=== PATIENT | female | born 1990 | race American Indian/Alaskan Native ===

== ENCOUNTER 2016-07-29 02:04 | Emergency (ER) | payer SELFPAY ==
[2016-07-29 02:19] VITALS: TEMP 98.2; O2SAT 97
--- NOTE | 2016-07-29 02:42 | ED PDOC ---
Arrival/HPI - General Chief Complaint: Abdominal Pain Time Seen by Provider: 07/29/16 02:30 Historian: Patient - History of Present Illness Narrative History of Present Illness (Text): 07/29/16 02:39 Navneet Richards is a 25 year old, 8 weeks female, who presents to the Emergency department for evaluation of 1 hour duration of abdominal pain associated with spotting. Denies any dysuria. Denies any fever, chills, headache , dizziness, chest pain, SOB, nausea, vomiting, diarrhea, or any other complaints at this time. Time/Duration: 1 hour Symptom Onset: Sudden Symptom Course: Unchanged Severity Level: Mild Activities at Onset: Light Past Medical History - Provider Review Nursing Documentation Reviewed: Yes - Psychiatric Hx Substance Use: No Family/Social History - Physician Review Nursing Documentation Reviewed: Yes Family/Social History: No Known Family HX Smoking Status: yes Hx Alcohol Use: No Hx Substance Use: No Allergies/Home Meds Allergies/Adverse Reactions: Allergies No Known Allergies Allergy (Verified 07/29/16 02:19) Review of Systems - Physician Review All systems were reviewed & negative as marked: Yes - Review of Systems Constitutional: Normal Respiratory: Normal. absent: SOB, Cough, Sputum Cardiovascular: Normal. absent: Chest Pain, Palpitations Gastrointestinal: Abdominal Pain. absent: Diarrhea, Nausea, Vomiting, Hematochezia, Hematemesis Genitourinary Female: Vaginal Bleeding Neurological: Normal. absent: Headache, Dizziness Psychiatric: Normal Physical Exam Vital Signs Reviewed: Yes Vital Signs Temp Pulse Resp BP Pulse Ox 07/29/16 02:14 98.2 F 87 18 108/62 97 Temperature: Afebrile Blood Pressure: Normal Pulse: Regular Respiratory Rate: Normal Appearance: Positive for: Well-Appearing, Non-Toxic, Comfortable Pain Distress: None Mental Status: Positive for: Alert and Oriented X 3 - Systems Exam Head: Present: Atraumatic, Normocephalic Pupils: Present: PERRL Extroacular Muscles: Present: EOMI Conjunctiva: Present: Normal Mouth: Present: Moist Mucous Membranes Neck: Present: Normal Range of Motion. No: MIDLINE TENDERNESS, Paraspinal Tenderness Respiratory/Chest: Present: Clear to Auscultation, Good Air Exchange. No: Respiratory Distress, Accessory Muscle Use Cardiovascular: Present: Regular Rate and Rhythm, Normal S1, S2. No: Murmurs Abdomen: Present: Normal Bowel Sounds. No: Tenderness, Distention, Peritoneal Signs Upper Extremity: Present: Normal Inspection. No: Cyanosis, Edema Lower Extremity: Present: Normal Inspection. No: Edema Neurological: Present: GCS=15, CN II-XII Intact, Speech Normal Skin: Present: Warm, Dry, Normal Color. No: Rashes Psychiatric: Present: Alert, Oriented x 3, Normal Insight, Normal Concentration Medical Decision Making ED Course and Treatment: 07/29/16 02:42 Impression: A 25 Year old female who presents to the Emergency department complaining of 1 hour duration of abdominal pain with spotting. Plan: -- Labs -- HCG -- Urinalysis -- Transvaginal US -- Reassess and disposition Progress Notes: 07/29/16 04:17 EXAM: US First Trimester results reviewed: FINDINGS: Gestation: Single intrauterine gestational sac. Yolk sac present. pole is identified with crown rump length of 1.6 cm and mean gestational sac diameter of 3.4 cm. cardiac activity identified - FHR is 160 bpm. Placenta/amniotic fluid: Cannot be adequately evaluated due to the early gestational age. Uterus/cervix: Normal size 6.7 x 8.5 x 10.3 cm. No myometrial mass. Ovaries: Right ovary 2.7 x 1.7 x 1.9 cm appears normal. Vascular flow noted to right ovary. Left ovary 3 x 2.5 x 3.2 cm appears normal. Vascular flow noted to left ovary. Free fluid: No evidence of pelvic free fluid. IMPRESSION: 1. Single viable intrauterine with estimated gestational age is 8 weeks 2 days by current ultrasound. 2. Normal appearing bilateral ovaries. 3. No evidence of pelvic free fluid. 07/29/16 04:59 On re-evaluation, patient feels better and is in no acute distress. I have discussed the results and plan with the patient, who expresses understanding. Patient in agreement with plan to be discharged home. Patient is stable for discharge. Patient was instructed to follow up with physician or return if symptoms worsen or new concerning symptoms arise. Re-evaluation Time: 04:50 Reassessment Condition: Re-examined, Improved - Lab Interpretations Lab Results: 07/29/16 02:44 07/29/16 02:44 Lab Results 07/29/16 03:05: Blood Type A POSITIVE, Antibody Screen Negative, BBK History Checked No verified bt 07/29/16 02:44: Urine Color Yellow, Urine Appearance Sl cloudy, Urine pH 6.0, Ur Specific [place] >= 1.030, Urine Protein 30 H, Urine Glucose (UA) Negative, Urine Ketones 15 H, Urine Blood Trace-lysed H, Urine Nitrate Negative, Urine Bilirubin Negative, Urine Urobilinogen 0.2, Ur Leukocyte Esterase Small H, Urine RBC 0 - 2, Urine WBC 20 - 25, Ur Epithelial Cells 1 - 3, Urine Bacteria Mod, Urine HCG, Qual Positive 07/29/16 02:44: Sodium 137, Potassium 3.6, Chloride 104, Carbon Dioxide 25, Anion Gap 12, BUN 13, Creatinine 0.7, Est GFR ( Amer) > 60, Est GFR (Non- Af Amer) > 60, Random Glucose 78, Calcium 9.6, Total Bilirubin 0.3, AST 125 H, ALT 87 H, Alkaline Phosphatase 43, Total Protein 7.8, Albumin 4.4, Globulin 3.4 , Albumin/Globulin Ratio 1.3 07/29/16 02:44: WBC 9.4, RBC 4.19, Hgb 10.7 L, Hct 32.2 L, MCV 76.8 L, MCH 25.5 , MCHC 33.2, RDW 17.0 H, Plt Count 216, MPV 10.0, Gran % 72.4 H, Lymph % (Auto) 17.7 L, [place] % (Auto) 9.2 H, Eos % (Auto) 0.5 L, Baso % (Auto) 0.2, Gran # 6.83 H, Lymph # 1.7, [place] # 0.9 H, Eos # 0.1, Baso # 0.02 - RAD Interpretation Radiology Orders: 07/29/16 02:36 OB TRANSVAGINAL [US] Stat - Medication Orders Current Medication Orders: Cephalexin Monohydrate (Keflex) 500 mg PO STAT STA PRN Reason: Protocol Stop: 07/29/16 04:59 - Scribe Statement The provider has reviewed the documentation as recorded by the Haydenibanastacio Sandoval Provider Attestation: Provider Scribe Attestation: All medical record entries made by the Scribe were at my direction and personally dictated by me. I have reviewed the chart and agree that the record accurately reflects my personal performance of the history, physical exam, medical decision making, and the department course for this patient. I have also personally directed, reviewed, and agree with the discharge instructions and disposition. Disposition/Present on Arrival - Present on Arrival Any Indicators Present on Arrival: No History of DVT/PE: No History of Uncontrolled Diabetes: No Urinary Catheter: No History of Decub. Ulcer: (nn) History Surgical Site Infection Following: None - Disposition Have Diagnosis and Disposition been Completed?: Yes Diagnosis: Urinary tract infection, Disposition: HOME/ ROUTINE Disposition Time: 04:51 Patient Problems: Current Active Problems Problem Status Onset Acute Urinary tract infection Acute Condition: GOOD Discharge Instructions (ExitCare): Urinary Tract Infection in Women (ED), First Trimester (ED) Prescriptions: Cephalexin [Keflex] 500 mg PO BID #14 capsule Referrals: Flip Trevino, [Primary Care Provider] - Follow up with primary
[2016-07-29 03:05] LABS: ADD MANUAL DIFF? NO
[2016-07-29 03:11] LABS: BASO # 0.02 K/mm3 (0.0-2.0); BASO % 0.2 % (0.0-3.0); EOS # 0.1 (0.0-0.7); EOS % 0.5 % (1.5-5.0); GRAN # 6.83 (1.4-6.5); GRAN % 72.4 % (50.0-68.0); HEMATOCRIT 32.2 % (36.0-48.0); LYMPH # 1.7 (1.2-3.4); LYMPH % 17.7 % (22.0-35.0); MEAN CELL VOLUME 76.8 fL (80.0-105.0); MEAN CORPUSCULAR HEMOGLOBIN 25.5 pg (25.0-35.0); MEAN CORPUSCULAR HGB CONC 33.2 g/dl (31.0-37.0); MONO # 0.9 (0.1-0.6); MONO % 9.2 % (1.0-6.0); PLATELET COUNT 216 10^3/uL (120.0-450.0); URINE BILIRUBIN NEGATIVE (NEGATIVE); URINE BLOOD TRACE-LYSED (NEGATIVE); URINE GLUCOSE (UA) NEGATIVE (NEGATIVE); URINE KETONE 15 mg/dL (NEGATIVE); URINE LEUKOCYTE ESTERASE SMALL Leu/uL (NEGATIVE); URINE PROTEIN 30 mg/dL (<30 mg/dL); URINE UROBILINOGEN 0.2 E.U./dL (<1 E.U./dL); WHITE BLOOD COUNT 9.4 10^3/ul (4.5-11.0)
[2016-07-29 03:25] LABS: ALB/GLOB RATIO 1.3 (1.1-1.8); ALKALINE PHOSPHATASE 43 U/L (38-133); ALT/SGPT 87 U/L (7-56); AST/SGOT 125 U/L (15-39); BILIRUBIN,TOTAL 0.3 mg/dL (0.2-1.3); BLOOD UREA NITROGEN 13 mg/dL (7-21); CALCIUM 9.6 mg/dL (8.4-10.5); CARBON DIOXIDE 25 mmol/L (21-33); CHLORIDE 104 mmol/L (95-110); GFR AFRICAN-AMERICAN > 60; GLUCOSE,RANDOM 78 mg/dL (70-110); POTASSIUM 3.6 mmol/L (3.6-5.0); SODIUM 137 mmol/L (132-148); TOTAL PROTEIN 7.8 g/dL (5.8-8.3)
[2016-07-29 03:28] LABS: URINE APPEARANCE SL CLOUDY (CLEAR); URINE COLOR YELLOW (YELLOW)
[2016-07-29 03:35] LABS: URINE BACTERIA MOD (NEG); URINE RBC 0 - 2 /hpf (0-2); URINE WBC 20 - 25 /hpf (0-6)
[2016-07-29 05:20] VITALS: BP 109/78; PULSE 89; RESP 14
--- NOTE | 2016-07-29 11:00 | US ---
PROCEDURE: OB Pelvic Ultrasound HISTORY: , abdominal pain COMPARISON: None TECHNIQUE: Transvaginal pelvic ultrasound was performed. FINDINGS: UTERUS: Single Live intrauterine gestation. CRL equivalent to 8 wks/ 0 days gestatioin Gestational sac diameter equivalent to 8 wks/ 4 days gestation age (Ultrasound estimated): 8 weeks and 2 days Date of delivery (Ultrasound estimated) : 03/08/2017 Heart rate: 160 bpm. Amanda-gestational hemorrhage: None. Measures 10.3 x 6.7 x 0.5 cm. Normal in size. No fibroid or other mass lesion seen. CERVIX: Long and closed. No cervical abnormality seen. RIGHT OVARY: Measures 2.7 x 1.7 x 1.9 cm. No mass. Normal flow. LEFT OVARY: Measures 3.0 x 2.5 x 3.2 cm. No mass. Normal flow. FREE FLUID: None. OTHER FINDINGS: None. IMPRESSION: Single live intrauterine gestation with mean gestational age of 8 weeks and 2 days. Estimated date of delivery by ultrasound is 03/08/2017. The ultrasound dates lag the clinical dates by 10 days. Clinical follow-up is advised.
== END 2016-07-29 05:19 | disposition home or self-care (01) ==
LOC: ED 02:04
DX: O23.41 Unspecified infection of urinary tract in pregnancy, first trimester (principal); Z3A.08 8 weeks gestation of pregnancy

== ENCOUNTER 2017-08-19 19:56 | Emergency (ER) | payer SELFPAY ==
[2017-08-19 20:22] VITALS: RESP 18; TEMP 97.6; O2SAT 100; BMI 24.4
--- NOTE | 2017-08-19 21:41 | ED PDOC ---
Arrival/HPI - General Chief Complaint: Abnormal Skin Integrity Time Seen by Provider: 08/19/17 21:18 Historian: Patient EM Caveat: Acuity of Condition - History of Present Illness Narrative History of Present Illness (Text): 08/19/17 21:36 Pt is a 27 yr old female who presents with dental abscesses and mouth pain for the past day. Reports that she had fractured a tooth on one side and dental cavity on another tooth that has never been addressed. Pt reports jaw pain that does not respond to Tylenol. Pt says she hasn't had insurance but will be receiving insurance soon through her work. Denies fever, shortness of breath, chest pain, n/v/d, trauma, trismus, drooling, dysphagia or any other complaint. Time/Duration: 4-6 hours Symptom Onset: Sudden Symptom Course: Worsening Quality: Aching, Pressure, Tightness Severity Level: 6 Activities at Onset: Rest Context: Home Past Medical History - Provider Review Nursing Documentation Reviewed: Yes - Travel History Have you recently traveled outside [place] w/in the past 3 mons?: No - Infectious Disease Hx of Infectious Diseases: None - Psychiatric Hx Substance Use: No Family/Social History - Physician Review Nursing Documentation Reviewed: Yes Family/Social History: Unknown Family HX Smoking Status: Occasional Hx Alcohol Use: No Hx Substance Use: No Allergies/Home Meds Allergies/Adverse Reactions: Allergies No Known Allergies Allergy (Verified 08/19/17 20:22) Review of Systems - Review of Systems Constitutional: Normal Eyes: Normal ENT: Normal, Other (right and left lower jaw pain and swelling) Respiratory: Normal Cardiovascular: Normal Gastrointestinal: Normal Genitourinary Female: Normal Musculoskeletal: Normal Skin: Normal Neurological: Normal Endocrine: Normal Hemo/Lymphatic: Normal Psychiatric: Normal Physical Exam Vital Signs Reviewed: Yes Vital Signs Temp Pulse Resp BP Pulse Ox 08/19/17 22:30 68 18 112/59 L 100 08/19/17 20:21 97.6 F 72 18 111/61 100 Temperature: Afebrile Blood Pressure: Normal Pulse: Regular Respiratory Rate: Normal Appearance: Positive for: Well-Appearing, Non-Toxic, Uncomfortable Pain Distress: Moderate Mental Status: Positive for: Alert and Oriented X 3 - Systems Exam Head: Present: Atraumatic, Normocephalic Pupils: Present: PERRL Extroacular Muscles: Present: EOMI Conjunctiva: Present: Normal Mouth: Present: Moist Mucous Membranes, Normal Lips, Normal Tounge, Normal Teeth , Other (left lower jaw molar abscess with glumliine erythema and edema; right lower molar fractured). No: Dry, Drooling, Trismus Pharnyx: Present: Normal. No: ERYTHEMA, EXUDATE Neck: Present: Normal Range of Motion Respiratory/Chest: Present: Clear to Auscultation, Good Air Exchange. No: Respiratory Distress, Accessory Muscle Use Cardiovascular: Present: Regular Rate and Rhythm, Normal S1, S2. No: Murmurs Abdomen: No: Tenderness, Distention, Peritoneal Signs Back: Present: Normal Inspection Upper Extremity: Present: Normal Inspection. No: Cyanosis, Edema Lower Extremity: Present: Normal Inspection. No: Edema Neurological: Present: GCS=15, CN II-XII Intact, Speech Normal Skin: Present: Warm, Dry, Normal Color. No: Rashes Lymphatic: No: Cervical Adenopathy Psychiatric: Present: Alert, Oriented x 3, Normal Insight, Normal Concentration Medical Decision Making ED Course and Treatment: 08/19/17 21:41 Impression Pt is a 27 yr old female who presents with dental abscess and mouth pain for the past day. On exam, left dental abscess with dentition intact lower jaw, right fractured molar on lower jaw Plan Toradol for pain Clindamycin PO assess and dispo Progress Note Cleocin 300 mg po stat toradol 30mg IM stat pt doing well after IM for pain advised to take ibuprofen 600mg with food q6 prn and take Cleocin 300mg qid x7 days f/u with dental clinic at [facility] tomorrow for tooth extraction and further care - Medication Orders Current Medication Orders: Discontinued Medications Clindamycin HCl (Cleocin) 300 mg PO STAT STA PRN Reason: Protocol Stop: 08/19/17 21:25 Last Admin: 08/19/17 22:28 Dose: 300 mg Ketorolac Tromethamine (Toradol) 30 mg IM STAT STA Stop: 08/19/17 21:23 Last Admin: 08/19/17 22:28 Dose: 30 mg MAR Pain Assessment Document 08/19/17 22:28 AD (Rec: 08/19/17 22:28 AD [id number] Pain Reassessment Is this a pain reassessment? No Presence of Pain Presence of Pain Yes IM Administration Charges Document 08/19/17 22:28 AD (Rec: 08/19/17 22:28 AD [id number] Injection Site MAR Injection Site Left Deltoid Charges for Administration # of IM Administrations 1 Disposition/Present on Arrival - Present on Arrival Any Indicators Present on Arrival: Yes History of DVT/PE: No History of Uncontrolled Diabetes: No Urinary Catheter: No History of Decub. Ulcer: No History Surgical Site Infection Following: None - Disposition Have Diagnosis and Disposition been Completed?: Yes Diagnosis: Dental abscess, Fracture, tooth Disposition: HOME/ ROUTINE Disposition Time: 21:58 Patient Plan: Discharge Condition: STABLE Discharge Instructions (ExitCare): Tooth Abscess (DC), Dental Pain (DC) Additional Instructions: HOLLY HOGUE, thank you for letting us take care of you today. Your provider was Jose Narayanan MD and DEISY Mneeses and you were treated for DENTAL ABSCESS AND MOUTH PAIN . The emergency medical care you received today was directed at your acute symptoms. If you were prescribed any medication, please fill it and take as directed. It may take several days for your symptoms to resolve. Return to the Emergency Department if your symptoms worsen, do not improve, or if you have any other problems. PLEASE SEE THE RECOMMENDED DENTAL CLINIC FOR POSSIBLE TOOTH EXTRACTION AND FURTHER TREATMENT Dental Clinic The Department of Dental Medicine provides dental care in the [facility] at the Dental Clinic. The Dental Clinic has three divisions: principal technologist, Hospital Dentistry and Pediatric Dentistry. The Department of Dental Medicine treats all age groups from through geriatrics. Hours of Operation Thursday - Thursday 8:00 AM - 5:00 PM [facility] [address] [place] [address] Please contact your doctor or call one of the physicians/clinics you have been referred to that are listed on the Patient Visit Information form that is included in your discharge packet. Bring any paperwork you were given at discharge with you along with any medications you are taking to your follow up visit. Our treatment cannot replace ongoing medical care by a primary care provider outside of the emergency department. Thank you for allowing the [facility] team to be part of your care today. Prescriptions: Clindamycin [Cleocin] 300 mg PO QID 7 Days #28 cap Ibuprofen [Motrin Tab] 600 mg PO Q6 PRN 5 Days #20 tab PRN Reason: pain/fever Forms: [employer] ([place]), WORK NOTE
[2017-08-20 02:45] VITALS: BP 112/59; PULSE 68
== END 2017-08-19 22:45 | disposition home or self-care (01) ==
LOC: ED 19:56
DX: K04.7 Periapical abscess without sinus (principal); S02.5XXA Fracture of tooth (traumatic), initial encounter for closed fracture; X58.XXXA Exposure to other specified factors, initial encounter; Y93.9 Activity, unspecified
CPT/HCPCS: 96372; 99283; J1885